=== PATIENT | female | born 1955 | race Caucasian/White ===

== ENCOUNTER 2017-03-23 12:41 | Inpatient (IN) | payer OTHER ==
[2017-03-23 13:54] LABS: ABSOLUTE BASOPHILS # (AUTO) 0.2 10^3/uL (0.0-0.2); ABSOLUTE EOSINOPHILS # (AUTO) 0.2 10^3/uL (0.0-0.6); ABSOLUTE LYMPHOCYTES (AUTO) 3.8 10^3/uL (0.5-4.7); ABSOLUTE MONOCYTES (AUTO) 1.1 10^3/uL (0.1-1.4); ABSOLUTE NEUT (AUTO) 6.4 10^3/uL (1.7-8.2); BASOPHILS % (AUTO) 1.4 % (0-2); HEMATOCRIT 39.1 % (36.0-47.0); HEMOGLOBIN 13.2 g/dL (12.0-15.5); HGB HCT DIFFERENCE 0.5; LYMPHOCYTES % (AUTO) 32.9 % (13-45); MEAN CORPUSCULAR HEMOGLOBIN 29.2 pg (27.0-33.4); MEAN CORPUSCULAR HGB CONC 33.7 g/dL (32.0-36.0); MEAN CORPUSCULAR VOLUME 87 fl (80-97); MONOCYTES % (AUTO) 9.4 % (3-13); RED BLOOD COUNT 4.51 10^6/uL (3.72-5.28); RED CELL DISTRIBUTION WIDTH 13.9 % (11.5-14.0); SEGMENTED NEUTROPHILS % (AUTO) 54.3 % (42-78); WHITE BLOOD COUNT 11.7 10^3/uL (4.0-10.5)
[2017-03-23 13:57] LABS: APPEARANCE,URINE CLEAR; BILIRUBIN,URINE NEGATIVE (NEGATIVE); GLUCOSE, URINE NEGATIVE (NEGATIVE); KETONES,URINE NEGATIVE (NEGATIVE); LEUKOCYTE ESTERASE,URINE NEGATIVE (NEGATIVE); NITRITE,URINE NEGATIVE (NEGATIVE); PROTEIN,URINE NEGATIVE (NEGATIVE); URINE SPECIFIC GRAVITY 1.011; UROBILINOGEN,URINE NEGATIVE mg/dL (<2.0)
[2017-03-23] MEDS ORDERED: AMPICILLIN SODIUM/SULBACTAM NA 3 GM in NORMAL SALINE 100 ML IV ONE ×2 (14:00→15:00)
[2017-03-23] MEDS: MORPHINE SULFATE 10 MG/ML INJ IV PRN ×3 (14:28→22:04)
[2017-03-23] MEDS: DEXTROSE 5%-1/2 NORMAL SALINE 1,000 ML IV PRN (14:34)
[2017-03-23] MEDS ORDERED: AMPICILLIN SODIUM/SULBACTAM NA 3 GM in NORMAL SALINE 100 ML IV SCH (15:00)
[2017-03-23] MEDS ORDERED: ENOXAPARIN SODIUM INJ 40 MG/0.4 ML DISP.SYRIN SUBCUT ONE (15:30)
[2017-03-23] MEDS: CLONIDINE HCL 0.2 MG TABLET PO SCH (21:34)
[2017-03-23] MEDS: ATORVASTATIN CALCIUM 10 MG TABLET PO SCH (21:35)
[2017-03-24] MEDS: MORPHINE SULFATE 10 MG/ML INJ IV PRN ×5 (02:45→20:55)
[2017-03-24] MEDS ORDERED: (PENDING PHARMACY ID) (Paroxetine Hcl [Paxil] 10 MG) PO SCH (10:00)
[2017-03-24] MEDS ORDERED: (PENDING PHARMACY ID) (Lisinopril/Hydrochlorothiazide [Lisinopril-Hctz 10-12.5 Mg Tab] 1 T PO SCH (10:00)
[2017-03-24] MEDS: PAROXETINE HCL 20 MG TABLET PO SCH (10:08)
[2017-03-24] MEDS: HYDROCHLOROTHIAZIDE 12.5 MG CAPSULE PO SCH (10:09)
[2017-03-24] MEDS: LISINOPRIL 10 MG TABLET PO SCH (10:09)
[2017-03-24] MEDS ORDERED: ENOXAPARIN SODIUM INJ 40 MG/0.4 ML DISP.SYRIN SUBCUT ONE (13:00)
[2017-03-24] MEDS: AMPICILLIN SODIUM/SULBACTAM NA 3 GM in NORMAL SALINE 100 ML IV SCH ×2 (15:20→20:54)
--- NOTE | 2017-03-24 15:35 | PDOC PROGRESS REPORT ---
Subjective Progress Note for:: 03/24/17 Subjective:: Patient seems comfortable. She still has quite a bit of pain in the left leg ulcer. Physical Exam Vital Signs: Temp Pulse Resp BP Pulse Ox 98.1 F 70 15 103/59 L 97 03/24/17 11:36 03/24/17 11:36 03/24/17 11:36 03/24/17 11:36 03/24/17 11:36 Intake & Output 03/23/17 03/24/17 03/25/17 06:59 06:59 06:59 Intake Total 1486 600 Output Total 900 Balance 1486 -300 Weight 71.894 kg Additional comments: Constitutional: Well-developed well-nourished lady. No apparent acute distress. Eyes: Mucous membranes pink and moist, pupils equal and reactive to light. Conjunctiva normal. Cornea normal. ENT: Hearing grossly normal. External pinna normal to inspection. Teeth intact. Tongue normal to inspection. Respiratory: Normal respiratory effort. Skin: Purulent ulcer with surrounding erythema in the left leg inferior medially. 3 cm across. Psychiatric: Judgment, memory, insight seem normal. Mood is pleasant and appropriate. Extremities: Upper extremities show normal range of movement. Pulses present noted to the radial arteries. Capillary refill normal. No cyanosis noted. No muscle wasting noted. Lower extremities show normal range of movement. Pulses present noted to the dorsalis pedis artery. Capillary refill normal. No cyanosis noted. No muscle wasting noted.Purulent ulcer with surrounding erythema in the left leg inferior medially. 3 cm across. Results Laboratory Results: 03/23/17 13:42 03/24/17 10:10 03/24/17 10:10 Creatinine 0.90 Est GFR ( Amer) > 60 Est GFR (Non-Af Amer) > 60 Assessment & Plan - Plan Summary Plan Summary: Continued IV antibiotic, ambulation with favoring of the left leg. Cultures to be done of the ulcer. Repeat CBC in about 2 days. Hope and expectation for discharge in about 48 hours if appropriate trajectory met.,
[2017-03-24] MEDS: ATORVASTATIN CALCIUM 10 MG TABLET PO SCH (22:24)
[2017-03-24] MEDS: CLONIDINE HCL 0.2 MG TABLET PO SCH (22:24)
[2017-03-25] MEDS: MORPHINE SULFATE 10 MG/ML INJ IV PRN ×5 (01:10→23:37)
[2017-03-25] MEDS: AMPICILLIN SODIUM/SULBACTAM NA 3 GM in NORMAL SALINE 100 ML IV SCH ×4 (02:51→22:09)
[2017-03-25] MEDS: LISINOPRIL 10 MG TABLET PO SCH (09:17)
[2017-03-25] MEDS: ENOXAPARIN SODIUM INJ 40 MG/0.4 ML DISP.SYRIN SUBCUT SCH (09:22)
[2017-03-25] MEDS: PAROXETINE HCL 20 MG TABLET PO SCH (09:22)
[2017-03-25] MEDS: HYDROCHLOROTHIAZIDE 12.5 MG CAPSULE PO SCH (09:22)
[2017-03-25] MEDS: MUPIROCIN CALCIUM 2% CREAM 15 GM TP SCH (12:12)
--- NOTE | 2017-03-25 13:10 | PDOC PROGRESS REPORT ---
Subjective Progress Note for:: 03/25/17 Subjective:: Overall the patient feels better. She still needs pain medication every 2 hours. She feels that the compression device is helping. Physical Exam Vital Signs: Temp Pulse Resp BP Pulse Ox 98.0 F 73 18 109/61 98 03/25/17 11:19 03/25/17 11:19 03/25/17 11:19 03/25/17 11:19 03/25/17 11:19 Intake & Output 03/24/17 03/25/17 03/26/17 06:59 06:59 06:59 Intake Total 1486 2600 Output Total 1620 Balance 1486 980 Weight 71.894 kg Additional comments: Constitutional: Well-developed well-nourished lady. No apparent acute distress. Eyes: Mucous membranes pink and moist, pupils equal and reactive to light. Conjunctiva normal. Cornea normal. Respiratory: Normal respiratory effort. Skin:ction. No Ulcers,. Psychiatric: Judgment, memory, insight seem normal. Mood is pleasant and appropriate. Extremities: Upper extremities show normal range of movement. Pulses present noted to the radial arteries. Capillary refill normal. No cyanosis noted. No muscle wasting noted. Lower extremities show normal range of movement. Pulses present noted to the dorsalis pedis artery. Capillary refill normal. No cyanosis noted. No muscle wasting noted. Stasis ulcer as noted Results Laboratory Results: 03/23/17 13:42 03/24/17 10:10 Assessment & Plan - Plan Summary Plan Summary: In this patient with cellulitis of the left leg, increased white cell count pain and swelling, IV antibiotics seems appropriate. She is making progress. The culture showed gram negatives, final report pending, adjustment of antibiotics may be indicated. We will order a new CBC for tomorrow. Her pain medicines are adjusted particularly as she gets headaches would respond to Advil only.
[2017-03-25] MEDS: IBUPROFEN 600 MG TABLET PO PRN (14:10)
[2017-03-25] MEDS: ATORVASTATIN CALCIUM 10 MG TABLET PO SCH (22:10)
[2017-03-25] MEDS: CLONIDINE HCL 0.2 MG TABLET PO SCH (22:10)
[2017-03-25] MEDS: OXYCODONE-ACETAMINOPHEN 5-325 MG TABLET PO PRN (22:10)
[2017-03-25] MEDS: DEXTROSE 5%-1/2 NORMAL SALINE 1,000 ML IV PRN (22:11)
[2017-03-26] MEDS: AMPICILLIN SODIUM/SULBACTAM NA 3 GM in NORMAL SALINE 100 ML IV SCH ×4 (03:40→21:53)
[2017-03-26] MEDS: OXYCODONE-ACETAMINOPHEN 5-325 MG TABLET PO PRN ×3 (03:41→21:54)
[2017-03-26] MEDS: MORPHINE SULFATE 10 MG/ML INJ IV PRN ×3 (06:06→18:33)
[2017-03-26 07:16] LABS: ABSOLUTE BASOPHILS # (AUTO) 0.1 10^3/uL (0.0-0.2); ABSOLUTE EOSINOPHILS # (AUTO) 0.3 10^3/uL (0.0-0.6); ABSOLUTE LYMPHOCYTES (AUTO) 3.7 10^3/uL (0.5-4.7); ABSOLUTE MONOCYTES (AUTO) 1.2 10^3/uL (0.1-1.4); ABSOLUTE NEUT (AUTO) 3.9 10^3/uL (1.7-8.2); BASOPHILS % (AUTO) 1.4 % (0-2); EOSINOPHILS % (AUTO) 2.8 % (0-6); HEMATOCRIT 37.4 % (36.0-47.0); HEMOGLOBIN 12.4 g/dL (12.0-15.5); HGB HCT DIFFERENCE -0.2; LYMPHOCYTES % (AUTO) 40.1 % (13-45); MEAN CORPUSCULAR HEMOGLOBIN 28.8 pg (27.0-33.4); MEAN CORPUSCULAR HGB CONC 33.1 g/dL (32.0-36.0); MEAN CORPUSCULAR VOLUME 87 fl (80-97); MONOCYTES % (AUTO) 13.2 % (3-13); RED BLOOD COUNT 4.31 10^6/uL (3.72-5.28); RED CELL DISTRIBUTION WIDTH 13.9 % (11.5-14.0); SEGMENTED NEUTROPHILS % (AUTO) 42.5 % (42-78); WHITE BLOOD COUNT 9.2 10^3/uL (4.0-10.5)
[2017-03-26] MEDS: LISINOPRIL 10 MG TABLET PO SCH (11:00)
[2017-03-26] MEDS: HYDROCHLOROTHIAZIDE 12.5 MG CAPSULE PO SCH (11:16)
[2017-03-26] MEDS: PAROXETINE HCL 20 MG TABLET PO SCH (11:17)
[2017-03-26] MEDS: ENOXAPARIN SODIUM INJ 40 MG/0.4 ML DISP.SYRIN SUBCUT SCH (11:17)
[2017-03-26] MEDS: MUPIROCIN CALCIUM 2% CREAM 15 GM TP SCH (15:09)
[2017-03-26] MEDS: IBUPROFEN 600 MG TABLET PO PRN (15:09)
[2017-03-26] MEDS: ATORVASTATIN CALCIUM 10 MG TABLET PO SCH (21:53)
[2017-03-26] MEDS: CLONIDINE HCL 0.2 MG TABLET PO SCH (21:53)
[2017-03-27] MEDS: MORPHINE SULFATE 10 MG/ML INJ IV PRN ×5 (00:16→20:02)
[2017-03-27] MEDS: OXYCODONE-ACETAMINOPHEN 5-325 MG TABLET PO PRN ×5 (02:19→22:54)
[2017-03-27] MEDS: AMPICILLIN SODIUM/SULBACTAM NA 3 GM in NORMAL SALINE 100 ML IV SCH ×4 (02:22→20:17)
[2017-03-27] MEDS: DEXTROSE 5%-1/2 NORMAL SALINE 1,000 ML IV PRN (02:23)
[2017-03-27] MEDS: PAROXETINE HCL 20 MG TABLET PO SCH (10:03)
[2017-03-27] MEDS: ENOXAPARIN SODIUM INJ 40 MG/0.4 ML DISP.SYRIN SUBCUT SCH (10:03)
[2017-03-27] MEDS: LISINOPRIL 10 MG TABLET PO SCH (10:15)
[2017-03-27] MEDS: HYDROCHLOROTHIAZIDE 12.5 MG CAPSULE PO SCH (10:15)
--- NOTE | 2017-03-27 16:19 | PDOC PROGRESS REPORT ---
Subjective Progress Note for:: 03/27/17 Physical Exam Vital Signs: Temp Pulse Resp BP Pulse Ox 97.8 F 82 18 126/76 H 98 03/27/17 15:08 03/27/17 15:08 03/27/17 15:08 03/27/17 15:08 03/27/17 15:08 Intake & Output 03/26/17 03/27/17 03/28/17 06:59 06:59 06:59 Intake Total 1596 2060 600 Output Total 300 2120 Balance 1296 -60 600 Additional comments: Constitutional: Well-developed well-nourished lady. No apparent acute distress. Eyes: Mucous membranes pink and moist, pupils equal and reactive to light. Conjunctiva normal. Cornea normal. ENT: Hearing grossly normal. Respiratory : Normal respiratory effort. Skin: Left ankle area ulcer, medially. Psychiatric: Judgment, memory, insight seem normal. Mood is pleasant and appropriate. Extremities: Upper extremities show normal range of movement. Pulses present noted to the radial arteries. Capillary refill normal. No cyanosis noted. No muscle wasting noted. Lower extremities show normal range of movement. Pulses present noted to the dorsalis pedis artery. Capillary refill normal. No cyanosis noted. No muscle wasting noted. Left ankle area ulcer, dressing in place. Results Laboratory Results: 03/26/17 06:10 03/24/17 10:10 03/24/17 15:35 Ankle - Abscess Gram Stain - Final 03/24/17 15:35 Ankle - Abscess Wound Culture - Final Pseudomonas Aeruginosa Skin Sally No Anaerobic Organisms Assessment & Plan - Diagnosis (2) Cellulitis of left leg Is this a current diagnosis for this admission?: YesPlan: In this patient whose culture has turned up pseudomonas we will change her dressing to cleaning with one quarter strength vinegar and saline then apply Bactroban. A change of antibiotic may be warranted and I will research a good regime for Pseudomonas. Her white cell count is decreased to 9.2 which is normal She is making progress in the hope that she can be discharged in the next 48 hours or so.
[2017-03-27] MEDS: MUPIROCIN CALCIUM 2% CREAM 15 GM TP SCH (18:30)
[2017-03-27] MEDS: ATORVASTATIN CALCIUM 10 MG TABLET PO SCH (21:47)
[2017-03-27] MEDS: CLONIDINE HCL 0.2 MG TABLET PO SCH (21:47)
[2017-03-28] MEDS: MORPHINE SULFATE 10 MG/ML INJ IV PRN ×4 (01:52→23:10)
[2017-03-28] MEDS: AMPICILLIN SODIUM/SULBACTAM NA 3 GM in NORMAL SALINE 100 ML IV SCH ×4 (03:31→23:10)
[2017-03-28] MEDS: DEXTROSE 5%-1/2 NORMAL SALINE 1,000 ML IV PRN (03:31)
[2017-03-28] MEDS: OXYCODONE-ACETAMINOPHEN 5-325 MG TABLET PO PRN ×4 (03:34→20:03)
[2017-03-28] MEDS: MUPIROCIN CALCIUM 2% CREAM 15 GM TP SCH (10:04)
[2017-03-28] MEDS: PAROXETINE HCL 20 MG TABLET PO SCH (10:04)
[2017-03-28] MEDS: ENOXAPARIN SODIUM INJ 40 MG/0.4 ML DISP.SYRIN SUBCUT SCH (10:05)
[2017-03-28] MEDS: HYDROCHLOROTHIAZIDE 12.5 MG CAPSULE PO SCH (10:11)
[2017-03-28] MEDS: LISINOPRIL 10 MG TABLET PO SCH (10:11)
[2017-03-28] MEDS: CLONIDINE HCL 0.2 MG TABLET PO SCH (23:09)
[2017-03-28] MEDS: ATORVASTATIN CALCIUM 10 MG TABLET PO SCH (23:10)
[2017-03-29] MEDS: AMPICILLIN SODIUM/SULBACTAM NA 3 GM in NORMAL SALINE 100 ML IV SCH ×4 (02:06→20:22)
[2017-03-29] MEDS: OXYCODONE-ACETAMINOPHEN 5-325 MG TABLET PO PRN ×4 (02:06→21:10)
[2017-03-29] MEDS: LISINOPRIL 10 MG TABLET PO SCH (09:17)
[2017-03-29] MEDS: HYDROCHLOROTHIAZIDE 12.5 MG CAPSULE PO SCH (09:17)
[2017-03-29] MEDS: MUPIROCIN CALCIUM 2% CREAM 15 GM TP SCH (09:21)
[2017-03-29] MEDS: PAROXETINE HCL 20 MG TABLET PO SCH (09:21)
[2017-03-29] MEDS: ENOXAPARIN SODIUM INJ 40 MG/0.4 ML DISP.SYRIN SUBCUT SCH (09:22)
[2017-03-29] MEDS ORDERED: (PENDING PHARMACY ID) (Alendronate Sodium [Fosamax 70 Mg Tablet] 70 MG) PO SCH (10:00)
[2017-03-29] MEDS ORDERED: MORPHINE SULFATE 10 MG/ML INJ ONE (12:02)
[2017-03-29] MEDS: MORPHINE SULFATE 10 MG/ML INJ IV PRN ×2 (12:02→19:17)
--- NOTE | 2017-03-29 14:50 | PDOC PROGRESS REPORT ---
Subjective Progress Note for:: 03/29/17 Physical Exam Vital Signs: Temp Pulse Resp BP Pulse Ox 97.9 F 67 18 104/54 L 97 03/29/17 12:21 03/29/17 12:21 03/29/17 12:21 03/29/17 12:21 03/29/17 12:21 Intake & Output 03/28/17 03/29/17 03/30/17 06:59 06:59 06:59 Intake Total 3120 790 Output Total 1150 1600 Balance 1969 - Weight 77.6 kg Additional comments: Constitutional: Well-developed well-nourished lady, moderately increased body mass in. No apparent acute distress. Eyes: Mucous membranes pink and moist, pupils equal and reactive to light. Conjunctiva normal. Cornea normal. Spectacles. ENT: Hearing grossly normal. External pinna normal to inspection. Teeth intact. Tongue normal to inspection. Respiratory: Normal respiratory effort. Skin: Left-sided lower leg ulcer Psychiatric: Judgment, memory, insight seem normal. Mood is pleasant and appropriate. Extremities: Upper extremities show normal range of movement. Pulses present noted to the radial arteries. Capillary refill normal. No cyanosis noted. No muscle wasting noted. Lower extremities show normal range of movement. Pulses present noted to the dorsalis pedis artery. Capillary refill normal. No cyanosis noted. No muscle wasting noted. Medial leg ulcer, dressing in place. Results Laboratory Results: 03/26/17 06:10 03/24/17 10:10 Assessment & Plan - Diagnosis (2) Cellulitis of left leg Is this a current diagnosis for this admission?: Yes - Plan Summary Plan Summary: This patient with improving symptoms, able to walk better with crutches, white cell count of the normal, vital signs normal, infected, cellulitis of left leg ulcer seems to be resolving. With culture of Pseudomonas will continue vinegar soaks and dressings. Given the low level of infection, no actual sepsis, use of mild glide leg is probably not indicated with medical improvement was resolution on Augmentin. Plan will be to continue IV antibiotic and probably discharge the patient tomorrow on continued oral antibiotics and wound care. She is agreeable.
[2017-03-29] MEDS: ATORVASTATIN CALCIUM 10 MG TABLET PO SCH (21:10)
[2017-03-30] MEDS: CLONIDINE HCL 0.2 MG TABLET PO SCH ×2 (00:52→21:48)
[2017-03-30] MEDS: MORPHINE SULFATE 10 MG/ML INJ IV PRN ×3 (00:52→20:42)
[2017-03-30] MEDS: AMPICILLIN SODIUM/SULBACTAM NA 3 GM in NORMAL SALINE 100 ML IV SCH ×2 (02:42→09:11)
[2017-03-30] MEDS: DEXTROSE 5%-1/2 NORMAL SALINE 1,000 ML IV PRN (02:42)
[2017-03-30] MEDS: OXYCODONE-ACETAMINOPHEN 5-325 MG TABLET PO PRN ×5 (02:46→23:37)
[2017-03-30] MEDS: HYDROCHLOROTHIAZIDE 12.5 MG CAPSULE PO SCH (09:05)
[2017-03-30] MEDS: LISINOPRIL 10 MG TABLET PO SCH (09:05)
[2017-03-30] MEDS: PAROXETINE HCL 20 MG TABLET PO SCH (09:12)
[2017-03-30] MEDS: ENOXAPARIN SODIUM INJ 40 MG/0.4 ML DISP.SYRIN SUBCUT SCH (09:13)
[2017-03-30] MEDS: MUPIROCIN CALCIUM 2% CREAM 15 GM TP SCH (09:17)
--- NOTE | 2017-03-30 19:24 | PDOC PROGRESS REPORT ---
Subjective Progress Note for:: 03/30/17 Subjective:: And still has pain in the left foot and has some pain on ambulation at the area of the ulcer. Nevertheless she feels better. Physical Exam Vital Signs: Temp Pulse Resp BP Pulse Ox 98.2 F 71 18 104/57 L 99 03/30/17 15:18 03/30/17 15:18 03/30/17 15:18 03/30/17 15:18 03/30/17 15:18 Intake & Output 03/29/17 03/30/17 03/31/17 06:59 06:59 06:59 Intake Total 790 2485 2201 Output Total 1600 3000 1450 Balance -810 -515 751 Additional comments: Constitutional: Well-developed well-nourished lady, moderately increased body mass in the. No apparent acute distress. ENT: Hearing grossly normal. External pinna normal to inspection. Teeth intact. Tongue normal to inspection. Respiratory: Normal respiratory effort. Skin: Ulcer at left ankle, both 2.5 cm across, less swelling and erythema. Psychiatric: Judgment, memory, insight seem normal. Mood is pleasant and appropriate. Extremities: Upper extremities show normal range of movement. Pulses present noted to the radial arteries. Capillary refill normal. No cyanosis noted. No muscle wasting noted. Lower extremities show normal range of movement. Pulses present noted to the dorsalis pedis artery. Capillary refill normal. No cyanosis noted. No muscle wasting noted.Ulcer at left ankle, both 2.5 cm across, less swelling and erythema. Results Laboratory Results: 03/26/17 06:10 03/24/17 10:10 Assessment & Plan - Diagnosis (2) Cellulitis of left leg Is this a current diagnosis for this admission?: Yes - Plan Summary Plan Summary: Patient was responded well to IV antibiotic infusion with wound care at the and be discharged in the morning.
[2017-03-30] MEDS: ATORVASTATIN CALCIUM 10 MG TABLET PO SCH (21:48)
[2017-03-31] MEDS: OXYCODONE-ACETAMINOPHEN 5-325 MG TABLET PO PRN ×2 (04:55→11:53)
[2017-03-31] MEDS: MORPHINE SULFATE 10 MG/ML INJ IV PRN (08:43)
[2017-03-31] MEDS: LISINOPRIL 10 MG TABLET PO SCH (09:48)
[2017-03-31] MEDS: PAROXETINE HCL 20 MG TABLET PO SCH (09:48)
[2017-03-31] MEDS: HYDROCHLOROTHIAZIDE 12.5 MG CAPSULE PO SCH (09:49)
[2017-03-31] MEDS: ENOXAPARIN SODIUM INJ 40 MG/0.4 ML DISP.SYRIN SUBCUT SCH (09:49)
[2017-03-31] MEDS: MUPIROCIN CALCIUM 2% CREAM 15 GM TP SCH (09:53)
[2017-03-31 12:15] VITALS: BP 119/87
--- NOTE | 2017-03-31 12:55 | PDOC DISCHARGE SUMMARY ---
General - Admit/Disc Date/PCP Admission Date/Primary Care Provider: 03/23/17 12:41 Discharge Date: 03/31/17 - Discharge Diagnosis (1) Cellulitis of left leg Is this a current diagnosis for this admission?: Yes (2) Cellulitis of left leg Is this a current diagnosis for this admission?: Yes - Additional Information Home Medications: Alendronate Sodium [Fosamax 70 mg Tablet] 70 mg PO TODD@1000 03/23/17 Atorvastatin Calcium [Lipitor 10 mg Tablet] 10 mg PO DAILY 03/23/17 Clonidine HCl [Catapres 0.2 mg Tablet] 0.2 mg PO QHS 03/23/17 Lisinopril/Hydrochlorothiazide [Lisinopril-Hctz 10-12.5 mg Tab] 1 tab PO DAILY 03/23/17 Paroxetine HCl [Paxil] 10 mg PO DAILY 03/23/17 History of Present Illness History of Present Illness: MARCIA LOWE is a 61 year old female she was admitted for leg ulcer and surrounding it in the left leg. This had been treated as an outpatient with oral antibiotic and compression test. He presented to walk very far she continued weight on the foot pain. She is admitted for control of cellulitis and improvement in symptoms as well as wound care. Hospital Course Hospital Course: The patient was treated with IV antibiotic, Augmentin. Also wound care. A culture Pseudomonas and wound care was switched over to regional vinegar with application of the Bactroban. Over the days. Her white count decreased from 12.9 to normal. She was able to be her more weight on the leg. She was able to tolerate compression. At this point the patient has achieved maximal hospital benefit. She is able to walk fairly well. The erythema and swelling around ulcer is decreased and the ulcers have decreased in about 3 cm in diameter about 2 cm in diameter. Physical Exam Vital Signs: Temp Pulse Resp BP Pulse Ox 97.4 F 65 18 143/71 H 100 03/31/17 12:04 03/31/17 12:04 03/31/17 12:04 03/31/17 12:04 03/31/17 12:04 Intake & Output 03/30/17 03/31/17 04/01/17 06:59 06:59 06:59 Intake Total 2485 3446 480 Output Total 3000 2250 0 Balance -515 1196 480 Additional comments: Constitutional: Well-developed well-nourished lady, mildly increased body mass. No apparent acute distress. Eyes: Mucous membranes pink and moist, pupils equal and reactive to light. Conjunctiva normal. Cornea normal. ENT: Hearing grossly normal. External pinna normal to inspection. Teeth intact. Tongue normal to inspection. Respiratory: Normal respiratory effort. Skin: Left lower leg medial leg ulcer, 2 cm across, mild erythema mild swelling surrounding it. Psychiatric: Judgment, memory, insight seem normal. Mood is pleasant and appropriate. Extremities: Upper extremities show normal range of movement. Pulses present noted to the radial arteries. Capillary refill normal. No cyanosis noted. No muscle wasting noted. Lower extremities show normal range of movement. Pulses present noted to the dorsalis pedis artery. Capillary refill normal. No cyanosis noted. No muscle wasting noted.Left lower leg medial leg ulcer, 2 cm across, mild erythema mild swelling surrounding it. Results Laboratory Results: 03/26/17 06:10 03/24/17 10:10 Plan Discharge Plan: Plan is to discharge the patient home. Detailed wound instructions have been given including. Shows open wound after irrigating with vinegar, quarter strength. Application of new Anna and thereafter or Silvadene. Needed and compression stocking during the working day. She will need a sequential compression device. The patient will need further evaluation would correction venous reflux. The hope is to reduce venous hypertension or reduce the recurrence rate of ulceration. Detailed discharge instructions are found in the discharge orders.
== END 2017-03-31 14:28 | disposition home or self-care (01) | DRG 603 ==
LOC: 5 12:41
PROVIDERS: ADMIT Surgery; ATTEND Surgery
DX: L03.116 Cellulitis of left lower limb (principal); I83.223 Varicose veins of left lower extremity with both ulcer of ankle and inflammation; L97.329 Non-pressure chronic ulcer of left ankle with unspecified severity; B96.5 Pseudomonas (aeruginosa) (mallei) (pseudomallei) as the cause of diseases classified elsewhere; I10 Essential (primary) hypertension; F17.210 Nicotine dependence, cigarettes, uncomplicated; Z87.442 Personal history of urinary calculi; Z90.711 Acquired absence of uterus with remaining cervical stump; Z90.49 Acquired absence of other specified parts of digestive tract; Z79.899 Other long term (current) drug therapy; Z80.9 Family history of malignant neoplasm, unspecified; Z82.49 Family history of ischemic heart disease and other diseases of the circulatory system
CPT/HCPCS: 36415; 81001; 82565; 85025; 87070; 87075; 87077; 87186; 87205; J0295; J1650; J2270; J3490

== ENCOUNTER 2018-05-24 12:58 | Inpatient (IN) | payer OTHER ==
[2018-05-24] MEDS: OXYCODONE-ACETAMINOPHEN 5-325 MG TABLET PO PRN ×3 (14:47→23:27)
[2018-05-24 14:59] LABS: ABSOLUTE BASOPHILS # (AUTO) 0.1 10^3/uL (0.0-0.2); ABSOLUTE EOSINOPHILS # (AUTO) 0.1 10^3/uL (0.0-0.6); ABSOLUTE LYMPHOCYTES (AUTO) 2.9 10^3/uL (0.5-4.7); ABSOLUTE MONOCYTES (AUTO) 0.8 10^3/uL (0.1-1.4); BASOPHILS % (AUTO) 0.9 % (0-2); EOSINOPHILS % (AUTO) 1.1 % (0-6); HEMATOCRIT 34.5 % (36.0-47.0); HEMOGLOBIN 11.4 g/dL (12.0-15.5); LYMPHOCYTES % (AUTO) 37.5 % (13-45); MEAN CORPUSCULAR HEMOGLOBIN 28.4 pg (27.0-33.4); MEAN CORPUSCULAR VOLUME 86 fl (80-97); MONOCYTES % (AUTO) 9.8 % (3-13); PLATELET COUNT 380 10^3/uL (150-450); RED BLOOD COUNT 4.01 10^6/uL (3.72-5.28); RED CELL DISTRIBUTION WIDTH 14.5 % (11.5-14.0); SEGMENTED NEUTROPHILS % (AUTO) 50.7 % (42-78); TOTAL CELLS COUNTED % (AUTO) 100 %; WHITE BLOOD COUNT 7.8 10^3/uL (4.0-10.5)
[2018-05-24 15:26] LABS: ALANINE AMINOTRANSFERASE 52 U/L (9-52); ALBUMIN 3.9 g/dL (3.5-5.0); ALKALINE PHOSPHATASE 118 U/L (38-126); ANION GAP 10 (5-19); ASPARTATE AMINO TRANSFERASE 38 U/L (14-36); BILIRUBIN,DIRECT 0.2 mg/dL (0.0-0.4); BILIRUBIN,TOTAL 0.3 mg/dL (0.2-1.3); BLOOD UREA NITROGEN 21 mg/dL (7-20); CALCIUM 8.4 mg/dL (8.4-10.2); CARBON DIOXIDE 25 mmol/L (22-30); CHLORIDE 107 mmol/L (98-107); GLUCOSE 94 mg/dL (75-110); POTASSIUM 4.6 mmol/L (3.6-5.0); TOTAL PROTEIN 6.6 g/dL (6.3-8.2)
[2018-05-24] MEDS: AMPICILLIN SODIUM/SULBACTAM NA 3 GM in NORMAL SALINE 100 ML IV SCH ×2 (15:46→21:09)
[2018-05-24] MEDS: DEXTROSE 5%-1/2 NORMAL SALINE 1,000 ML IV PRN (15:46)
[2018-05-24] MEDS ORDERED: ACETAMINOPHEN 325 MG TABLET PO ONE (21:30)
[2018-05-25] MEDS: AMPICILLIN SODIUM/SULBACTAM NA 3 GM in NORMAL SALINE 100 ML IV SCH ×4 (03:55→20:50)
[2018-05-25] MEDS: OXYCODONE-ACETAMINOPHEN 5-325 MG TABLET PO PRN ×5 (03:56→22:17)
[2018-05-25 05:18] LABS: INTERNATIONAL RATION (INR) 0.88; PARTIAL THROMBOPLASTIN TIME 32.1 SEC (23.5-35.8); PROTHROMBIN TIME 12.3 SEC (11.4-15.4)
[2018-05-25] MEDS: ENOXAPARIN SODIUM INJ 40 MG/0.4 ML DISP.SYRIN SUBCUT SCH (09:24)
[2018-05-25] MEDS: SILVER SULFADIAZINE 1% CREAM 50 GM TP SCH (09:26)
[2018-05-25] MEDS ORDERED: ENOXAPARIN SODIUM INJ 40 MG/0.4 ML DISP.SYRIN SUBCUT SCH (10:00)
[2018-05-25 11:30] LABS: APPEARANCE,URINE CLEAR; BILIRUBIN,URINE NEGATIVE (NEGATIVE); COLOR,URINE STRAW; GLUCOSE, URINE NEGATIVE (NEGATIVE); KETONES,URINE NEGATIVE (NEGATIVE); LEUKOCYTE ESTERASE,URINE SMALL (NEGATIVE); NITRITE,URINE NEGATIVE (NEGATIVE); PROTEIN,URINE NEGATIVE (NEGATIVE); URINE SPECIFIC GRAVITY 1.012; UROBILINOGEN,URINE NEGATIVE mg/dL (<2.0)
--- NOTE | 2018-05-25 17:01 | PDOC PROGRESS REPORT ---
Subjective Progress Note for:: 05/25/18 Subjective:: The patient is resting comfortably. White cells count normal, temperature normal. Local sign of inflammation receding on IV antibiotic and wound care. Reason For Visit: CELLULITIS, LELE ULCER Physical Exam Vital Signs: Temp Pulse Resp BP Pulse Ox 98.3 F 82 16 127/78 H 100 05/25/18 16:04 05/25/18 16:04 05/25/18 16:04 05/25/18 16:04 05/25/18 16:04 Intake & Output 05/24/18 05/25/18 05/26/18 06:59 06:59 06:59 Intake Total 1000 820 Output Total 800 Balance 1000 20 Weight 77.1 kg Additional comments: Constitutional: Well-developed well-nourished lady. No apparent acute distress. Eyes: Mucous membranes pink and moist, pupils equal and reactive to light. Conjunctiva normal. Cornea normal. Respiratory: Normal respiratory effort. Extremities: Upper extremities show normal range of movement. Pulses present noted to the radial arteries. Capillary refill normal. No cyanosis noted. No muscle wasting noted. Lower extremities show normal range of movement. Pulses present noted to the dorsalis pedis artery. Capillary refill normal. No cyanosis noted. No muscle wasting noted. Left medial ankle ulceration as previously described. Freshly dressed. Results Laboratory Results: 05/24/18 14:30 05/24/18 14:30 05/25/18 09:33 Urine Color STRAW Urine Appearance CLEAR Urine pH 5.0 Ur Specific Fisher 1.012 Urine Protein NEGATIVE Urine Glucose (UA) NEGATIVE Urine Ketones NEGATIVE Urine Blood NEGATIVE Urine Nitrite NEGATIVE Ur Leukocyte Esterase SMALL H Urine WBC (Auto) 5 Urine RBC (Auto) 1 Assessment & Plan - Diagnosis (1) Cellulitis of left leg Is this a current diagnosis for this admission?: Yes - Plan Summary Plan Summary: The patient is making appropriate progress with IV antibiotic, wound care. If this continues anticipate discharge in the next 24-48 hours.
[2018-05-26] MEDS: AMPICILLIN SODIUM/SULBACTAM NA 3 GM in NORMAL SALINE 100 ML IV SCH ×3 (02:15→15:23)
[2018-05-26] MEDS: DEXTROSE 5%-1/2 NORMAL SALINE 1,000 ML IV PRN (02:15)
[2018-05-26] MEDS: OXYCODONE-ACETAMINOPHEN 5-325 MG TABLET PO PRN ×4 (04:41→20:21)
[2018-05-26] MEDS: ENOXAPARIN SODIUM INJ 40 MG/0.4 ML DISP.SYRIN SUBCUT SCH (10:01)
[2018-05-26] MEDS: SILVER SULFADIAZINE 1% CREAM 50 GM TP SCH (10:03)
[2018-05-26] MEDS: AMPICILLIN SODIUM/SULBACTAM NA 3 GM in NORMAL SALINE 50 ML IV SCH (20:18)
[2018-05-27] MEDS: AMPICILLIN SODIUM/SULBACTAM NA 3 GM in NORMAL SALINE 50 ML IV SCH ×2 (02:06→08:27)
[2018-05-27] MEDS: OXYCODONE-ACETAMINOPHEN 5-325 MG TABLET PO PRN ×3 (02:09→14:45)
[2018-05-27] MEDS: SILVER SULFADIAZINE 1% CREAM 50 GM TP SCH (09:48)
[2018-05-27] MEDS: ENOXAPARIN SODIUM INJ 40 MG/0.4 ML DISP.SYRIN SUBCUT SCH (09:49)
[2018-05-27 14:27] VITALS: BP 118/61
--- NOTE | 2018-05-30 15:25 | PDOC H&P ---
General Chief Complaint: This patient has severe venous hypertension. Unfortunately she has not been able to get insurance to approve ablation therapy which would certainly improve or cure the situation. She does not have sequential compression device. She relies on compression stockings. She does continue to work diligently. Unfortunately her long hours standing on her feet conflict with the venous hypertension causing recurrent venous stasis ulceration. Currently she also has cellulitis surrounding the ulcer in the left leg. This has not healed despite multiple rounds of antibiotic and topical maneuvers. She is therefore admitted for IV antibiotic and more intensive wound care. - Diagnosis (1) Cellulitis of left leg Is this a Current Diagnosis?: Yes - Current Medications/Allergies Home Medications: Alendronate Sodium [Fosamax] 70 mg PO TODD@1000 05/24/18 Aspirin [Aspirin 325 mg Tablet] 325 mg PO Q8 05/24/18 Atorvastatin Calcium [Lipitor 10 mg Tablet] 10 mg PO QHS 05/24/18 Clonidine HCl [Catapres 0.2 mg Tablet] 0.2 mg PO QHS 05/24/18 Cyclobenzaprine HCl [Flexeril 5 mg Tablet] 5 mg PO HSP PRN 05/24/18 Esomeprazole Mag Trihydrate [Nexium] 40 mg PO Q6AM 05/24/18 Lisinopril/Hydrochlorothiazide [Zestoretic 10-12.5 mg Tablet] 1 each PO QHS 04/05 Paroxetine HCl [Paxil] 10 mg PO DAILY 05/24/18 Allergies/Adverse Reactions: No Known Allergies Allergy (Unverified 03/23/17 13:54) Past Medical History Psychiatric Medical History: Denies: Depression Family History Parental Family History Reviewed: No Children Family History Reviewed: No Sibling(s) Family History Reviewed.: No Social History Smoking Status: Former Smoker Last Time Smoked: 10/19/2015 Frequency of Alcohol Use: None Hx Recreational Drug Use: No Drugs: None Hx Prescription Drug Abuse: No Physical Exam Vital Signs: Temp Pulse Resp BP Pulse Ox 97.3 F 74 17 118/61 100 05/24/18 13:29 05/24/18 13:29 05/24/18 13:29 05/24/18 13:29 05/24/18 13:29 Intake & Output 05/23/18 05/24/18 05/25/18 06:59 06:59 06:59 Weight 77.2 kg Additional comments: Constitutional: Well-developed well-nourished lady. No apparent acute distress. Eyes: Mucous membranes pink and moist, pupils equal and reactive to light. Conjunctiva normal. Cornea normal. ENT: Hearing grossly normal. External pinna normal to inspection. Teeth intact. Tongue normal to inspection. Cardiac: Heart sounds 1 and 2 normal. Respiratory breath sounds are present bilaterally, normal. Normal respiratory effort. Skin: Thickened, fragile, hyperpigmented skin in the left leg particularly medially. Ulcer just above the ankle measuring about 1.5 cm across. Surrounded by erythema and tenderness. Psychiatric: Judgment, memory, insight seem normal. Mood is pleasant and appropriate. Extremities: Upper extremities show normal range of movement. Pulses present noted to the radial arteries. Capillary refill normal. No cyanosis noted. No muscle wasting noted. Lower extremities show normal range of movement. Pulses present noted to the dorsalis pedis artery. Capillary refill normal. No cyanosis noted. No muscle wasting noted.Thickened, fragile, hyperpigmented skin in the left leg particularly medially. Ulcer just above the ankle measuring about 1.5 cm across. Surrounded by erythema and tenderness. Impression/Plan Plan: The plan is to admit the patient for IV antibiotic. Wound cultures to be taken. Leg elevation. Consideration for debridement. The hope is to have sufficient improvement to discharge the patient to to 3 days.
--- NOTE | 2018-05-30 15:28 | PDOC DISCHARGE SUMMARY ---
General - Admit/Disc Date/PCP Admission Date/Primary Care Provider: 05/24/18 12:58 DENISA GARCIA MD Discharge Date: 05/27/18 - Discharge Diagnosis (1) Cellulitis of left leg Is this a current diagnosis for this admission?: Yes - Additional Information Discharge Diet: As Tolerated, Regular Discharge Activity: Activity As Tolerated, Balance Activity w/Rest Home Medications: Alendronate Sodium [Fosamax] 70 mg PO TODD@1000 05/24/18 Aspirin [Aspirin 325 mg Tablet] 325 mg PO Q8 05/24/18 Atorvastatin Calcium [Lipitor 10 mg Tablet] 10 mg PO QHS 05/24/18 Clonidine HCl [Catapres 0.2 mg Tablet] 0.2 mg PO QHS 05/24/18 Cyclobenzaprine HCl [Flexeril 5 mg Tablet] 5 mg PO HSP PRN 05/24/18 Esomeprazole Mag Trihydrate [Nexium] 40 mg PO Q6AM 05/24/18 Lisinopril/Hydrochlorothiazide [Zestoretic 10-12.5 mg Tablet] 1 each PO QHS 04/05 Paroxetine HCl [Paxil] 10 mg PO DAILY 05/24/18 History of Present Illness History of Present Illness: MARCIA LOWE is a 62 year old female Hospital Course Hospital Course: The patient was admitted for IV antibiotic and wound care. She responded very well with decrease in wound drainage and slough. Also less pain. By the ninth she had achieved maximal hospital benefit and was discharged. Wound care is to be as established daily showers to the wound with soap and water and then application of Silvadene. Use of compression stockings to continue daily. She is given a prescription for Percocet 10 tablets to assist with management. Follow-up is to be in office with Dr. Garcia by appointment in about 1 week. Physical Exam Vital Signs: Temp Pulse Resp BP Pulse Ox 98.2 F 98 15 118/61 97 05/27/18 14:20 05/27/18 14:20 05/27/18 14:20 05/27/18 14:20 05/27/18 14:20 Results Laboratory Results: 05/24/18 14:30 05/24/18 14:30 Qualifiers - * PATIENT BEING DISCHARGED WITH ANY OF THE FOLLOWING DIAGNOSIS: No Reason(s) for not prescribing Overlap Therapy:: Not indicated Plan Discharge Plan: Discharge home on regular medications. Prescription for Percocet. Established wound care. Follow-up with Dr. Garcia in office by appointment in about 1 week.
== END 2018-05-27 14:56 | disposition home or self-care (01) | DRG 603 ==
LOC: 5 12:58
PROVIDERS: ADMIT Surgery; ATTEND Surgery
DX: L03.116 Cellulitis of left lower limb (principal); I83.023 Varicose veins of left lower extremity with ulcer of ankle; Z79.899 Other long term (current) drug therapy; Z87.891 Personal history of nicotine dependence; Z90.49 Acquired absence of other specified parts of digestive tract; Z90.710 Acquired absence of both cervix and uterus
CPT/HCPCS: 36415; 80048; 80076; 81001; 85025; 85610; 85730; 87070; 87205; J0295; J1650; J3490

== ENCOUNTER → 2019-05-30 | Outpatient (CLI) | payer OTHER, BC ==
--- NOTE | 2019-05-30 15:14 | XCELERA REPORT ---
[address] [address] Lower Extremity Venous Evaluation Procedure: Color flow and duplex imaging of the veins of the left lower extremity as well as the right Common Femoral vein. Right Sided Venous Evaluation The right common femoral vein is fully compressible. Spontaneous and phasic flow is present in the right common femoral vein. Left Sided Venous Evaluation Echogenic, no flow, normal size,no Colour flow in the Gastrocnemius veins, 2 of 2, and in the Greater Saphenus vein, from leg to Saphenofemoral junction, no extension into the Common Femoral. Otherwise normal vessel filling wall to wall, compression and augmentation as well as Colour flow. Interpretation Summary Limited Deep venous thrombosis on the left. Also Superficial vein, Greater Saphenous closure, compatible with recent ablation. Name: MARCIA LOWE Age: 63 yrs Gender: Female : 1955 Patient Status: Outpatient Patient Location: Study Date: 05/30/2019 10:59 AM Reason For Study: LLE PAIN/SWELLING Ordering Physician: DENISA GARCIA Performed By: Nancy Persaud : DENISA GARCIA > Denisa Garcia
== END ==
LOC: SP 10:19
PROVIDERS: ATTEND Surgery
DX: I82.4Z2 Acute embolism and thrombosis of unspecified deep veins of left distal lower extremity (principal); M79.605 Pain in left leg
CPT/HCPCS: 93971

== ENCOUNTER → 2019-06-09 | Outpatient (CLI) | payer OTHER, BC ==
--- NOTE | 2019-06-09 14:33 | RADIOLOGY REPORT (SQ) ---
EXAM DESCRIPTION: VENOUS UNILATERAL LOWER COMPLETED DATE/TIME: 06/09/2019 11:46 am REASON FOR STUDY: LLE SWELLING I82.409 ACUTE EMBOLISM AND THOMBOS UNSP DEEP VN UNSP LOWER E COMPARISON: None. TECHNIQUE: Dynamic and static sheppard scale and color images acquired of the left leg venous system. Se lected spectral images acquired with additional compression and augmentation maneuvers. The contralat eral common femoral vein and saphenofemoral junction were also imaged. Images stored on PACS. LIMITATIONS: None. FINDINGS: COMMON FEMORAL: Normal phasicity, compression and augmentation. No visualized echogenic ma terial on sheppard scale. No defects on color images. FEMORAL: Normal compression and augmentation. No visualized echogenic material on sheppard scale. No defe cts on color images. POPLITEAL: Normal compression, augmentation. No visualized echogenic material on sheppard scale. No defec ts on color images. CALF VESSELS: Normal compression, augmentation. No visualized echogenic material on sheppard scale. No de fects on color images. GSV and SSV: Noncompressible greater saphenous vein across its length. ANY DEEP VENOUS INSUFFICIENCY: Not evaluated. ANY EVIDENCE OF POPLITEAL CYST: No. OTHER: No other significant finding. CONTRALATERAL COMMON FEMORAL VEIN AND SAPHENOFEMORAL JUNCTION: Normal phasicity, compression and augmentation. No visualized echogenic material on sheppard scale. No de fects on color images. IMPRESSION: Noncompressible left greater saphenous vein. No deep vein thrombosis in the left poplit eal or femoral veins. TECHNICAL DOCUMENTATION: JOB ID: [id number] [employer]- All Rights Reserved Reading location - IP/workstation name: [email or web address]
== END ==
LOC: SP 09:15
PROVIDERS: ATTEND Surgery
DX: I82.409 Acute embolism and thrombosis of unspecified deep veins of unspecified lower extremity (principal)
CPT/HCPCS: 93971